=== PATIENT | male | born 1995 | race Caucasian/White ===

== ENCOUNTER 2018-10-03 12:16 | Emergency (ER) | payer OTHER ==
[~2018-10-03] VITALS: Ht 182.9 cm; Wt 77.1 kg
[2018-10-03 12:24] VITALS: Ht 182.9 cm; Wt 77.1 kg
[2018-10-03 12:39] VITALS: BP 124/76
== END 2018-10-03 12:38 | disposition other institution (70) ==
LOC: ED 12:16
DX: Z02.89 Encounter for other administrative examinations (principal)

== ENCOUNTER 2018-12-10 16:42 | Emergency (ER) | payer OTHER ==
[~2018-12-10] VITALS: Ht 182.9 cm; Wt 72.6 kg
[2018-12-10 16:48] VITALS: Ht 182.9 cm; Wt 72.6 kg
[2018-12-10 17:32] VITALS: BP 127/67
== END 2018-12-10 17:33 | disposition other institution (70) ==
LOC: ED 16:42
DX: Z02.89 Encounter for other administrative examinations (principal)